=== PATIENT | male | born 1980 | race Caucasian/White ===

== ENCOUNTER 2020-05-12 08:24 | Emergency (ER) | payer OTHER ==
[2020-05-12] MEDS ORDERED: Sodium Chloride 0.9% 10 ML Syringe FLUSH PRN (08:57)
[2020-05-12] MEDS ORDERED: Sodium Chloride 0.9% 2.5 ML Syringe FLUSH PRN (08:57)
[2020-05-12] MEDS ORDERED: Bupivacaine 0.5% 10 ML SDV INJECT ONE (08:59)
[2020-05-12] MEDS ORDERED: Lidocaine 1% 10 ML MDV INJECT ONE (08:59)
[2020-05-12] MEDS ORDERED: ceFAZolin 1 GM in Premix Bag 1 BAG IV ONE (08:59)
--- NOTE | 2020-05-12 09:03 | EDM.PDOC ---
ED HPI GENERAL MEDICAL PROBLEM - General Chief Complaint: Lower Extremity Injury/Pain Stated Complaint: LFT FOOT INFECTED Time Seen by Provider: 05/12/20 08:47 - History of Present Illness INITIAL COMMENTS - FREE TEXT/NARRATIVE: History of present illness: [] Has dealt with a ingrown toenail on his left foot for about a month. 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 He has continued to suffer with pain and drainage and redness with swelling. 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 He is not diabetic but he started having the feeling that he is feverish and has chills. He is also been lightheaded for 2 days. Because of systemic signs of infection he came to have professional rest the issue and try to keep him from getting sicker. Review of systems: As per history of present illness and below otherwise all systems reviewed and negative. Past medical history: As per history of present illness and as reviewed below otherwise noncontributory. Surgical history: As per history of present illness and as reviewed below otherwise noncontributory. Social history: No reported history of drug or alcohol abuse. Family history: As per history of present illness and as reviewed below otherwise noncontributory. Physical exam: Constitutional - well developed, well-nourished and in no acute distress HEENT - normocephalic, no evidence of trauma - external nose and mouth normal - no mass in neck and no JVD - mucosae moist EYES - full EOM, PERRL, no icterus - no evidence of inflammation, injection, or drainage Respiratory - no respiratory distress, equal bilateral expansion Musculoskeletal no gross deformity of long bones or joints - no tenderness, swelling or edema Neurologic - Alert and oriented times four - CN II-XII grossly intact - motor sensory and coordination symmetrically normal Psychiatric - appropriate mood and affect with normal thought content Hematologic - No petechiae or purpura - mucosa appropriate color and sclera not pale - normal nail bed color and refill Integument -the patient has an ingrown toenail in toe number one of the left foot. He also has erythema and swelling in the paronychial area. The area is very tender. No rash or evidence of trauma - normal turgor Diagnostics: [] Therapeutics: [] Impression: [] Plan: [] Definitive disposition and diagnosis as appropriate pending reevaluation and review of above. Left great toe Pain Score (Numeric/FACES): 3 - Related Data Allergies Allergy/AdvReac Type Severity Reaction Status Date / Time iodine Allergy Anaphylactic Verified 05/12/20 08:45 Shock shellfish derived Allergy Anaphylactic Verified 05/12/20 08:45 Shock Home Meds: Home Meds Meloxicam 05/12/20 [History] Verapamil [Verelan] 05/12/20 [History] busPIRone [Buspar] 05/12/20 [History] cephALEXin [Cephalexin] 500 mg PO BID #14 capsule 05/12/20 [Rx] Past Medical History Musculoskeletal History: Reports: Arthritis Neurological History: Reports: Migraines Psychiatric History: Reports: Anxiety, PTSD - Infectious Disease History Infectious Disease History: Reports: Chicken Pox Social & Family History - Family History Family Medical History: No Pertinent Family History - Tobacco Use Tobacco Use Status *Q: Never Tobacco User - Caffeine Use Caffeine Use: Reports: Coffee - Recreational Drug Use Recreational Drug Use: No Review of Systems - Review of Systems Review Of Systems: Comprehensive ROS is negative, except as noted in HPI. ED EXAM, GENERAL - Physical Exam Exam: See Below Free Text/Narrative:: My physical exam is in the HPI ED TRAUMA EXTREMITY PROCEDURES - I&D Site: Left great toe Skin Prep: Chlorhexidine (Hibiciens) Local Anesthesia: Lidocaine: 1% Plain Local Anesthesia - Bupivicaine (Marcaine): 0.5% Plain Local Anesthetic Volume: Other (10 cc) Area Incised With: 11 Blade Drainage: Purulent Probed to Break Up Loculations: Yes Packed With: 1/4 in. Iodoform Sterile Dressinx4(s) Progress/Comments: After chlorhexidine prep the base of the toe was injected with 10 mL of a 50-50 combination of bupivacaine and Xylocaine. After adequate local anesthesia from the digital block the procedure was done and part of the nail on each side of the nail was removed all the way back to the base and the eponychium was elevated. A little purulent drainage was obtained. The patient tolerated the procedure well. Deformed packing was added on both sides. Course - Vital Signs Last Recorded V/S: Last Vital Signs Temp 36.8 C 05/12/20 08:42 Pulse 71 05/12/20 09:38 Resp 18 05/12/20 08:42 BP 129/82 05/12/20 09:38 Pulse Ox 97 05/12/20 09:38 - Orders/Labs/Meds Orders: Active Orders 24 hr Category Date Time Status Sodium Chloride 0.9% [Saline Flush] Med 05/12/20 08:57 Active 10 ml FLUSH ASDIRECTED PRN Sodium Chloride 0.9% [Saline Flush] Med 05/12/20 08:57 Active 2.5 ml FLUSH ASDIRECTED PRN Saline Lock Insert [OM.PC] Stat Oth 05/12/20 08:57 Ordered Medication Orders Sodium Chloride (Sodium Chloride 0.9% 10 Ml Syringe) 10 ml FLUSH ASDIRECTED PRN PRN Reason: Keep Vein Open Last Admin: 05/12/20 09:13 Dose: 10 ml Documented by: ELIAZAR Sodium Chloride (Sodium Chloride 0.9% 2.5 Ml Syringe) 2.5 ml FLUSH ASDIRECTED PRN PRN Reason: Keep Vein Open Last Admin: 05/12/20 09:13 Dose: 2.5 ml Documented by: ELIAZAR Labs: Laboratory Tests 05/12/20 05/12/20 Range/Units 09:10 09:10 WBC 5.90 (4.0-11.0) K/uL RBC 5.61 (4.50-5.90) M/uL Hgb 17.0 (13.0-17.0) g/dL Hct 48.9 (38.0-50.0) % MCV 87.2 (80.0-98.0) fL MCH 30.3 (27.0-32.0) pg MCHC 34.8 (31.0-37.0) g/dL RDW Std Deviation 40.0 (28.0-62.0) fl RDW Coeff of Smita 13 (11.0-15.0) % Plt Count 158 (150-400) K/uL MPV 11.10 (7.40-12.00) fL Neut % (Auto) 63.3 (48.0-80.0) % Lymph % (Auto) 24.9 (16.0-40.0) % [place] % (Auto) 9.0 (0.0-15.0) % Eos % (Auto) 2.5 (0.0-7.0) % Baso % (Auto) 0.3 (0.0-1.5) % Neut # (Auto) 3.7 (1.4-5.7) K/uL Lymph # (Auto) 1.5 (0.6-2.4) K/uL [place] # (Auto) 0.5 (0.0-0.8) K/uL Eos # (Auto) 0.2 (0.0-0.7) K/uL Baso # (Auto) 0.0 (0.0-0.1) K/uL Nucleated RBC % 0.0 /100WBC Nucleated RBCs # 0 K/uL Sodium 141 (136-148) mmol/L Potassium 4.4 (3.5-5.1) mmol/L Chloride 108 H (98-107) mmol/L Carbon Dioxide 26.1 (21.0-32.0) mmol/L BUN 15 (7.0-18.0) mg/dL Creatinine 1.0 (0.8-1.3) mg/dL Est Cr Clr Drug Dosing 121.76 mL/min Estimated GFR (MDRD) > 60.0 ml/min Glucose 89 (74-106) mg/dL Calcium 8.5 (8.5-10.1) mg/dL Meds: Medications Generic Name Dose Route Start Last Admin Trade Name Freq PRN Reason Stop Dose Admin Sodium Chloride 10 ml 05/12/20 08:57 05/12/20 09:13 Sodium Chloride 0.9% 10 Ml Syringe FLUSH 10 ml ASDIRECTED PRN Administration Keep Vein Open Sodium Chloride 2.5 ml 05/12/20 08:57 05/12/20 09:13 Sodium Chloride 0.9% 2.5 Ml Syringe FLUSH 2.5 ml ASDIRECTED PRN Administration Keep Vein Open Discontinued Medications Generic Name Dose Route Start Last Admin Trade Name Freq PRN Reason Stop Dose Admin Bupivacaine HCl 10 ml 05/12/20 08:59 05/12/20 09:11 Bupivacaine 0.5% 10 Ml Sdv INJECT 05/12/20 09:00 10 ml ONETIME ONE Administration Cefazolin Sodium/Dextrose 1 gm 50 mls @ 100 mls/hr 05/12/20 08:59 05/12/20 09:10 / Premix IV 05/12/20 09:28 100 mls/hr ONETIME ONE Administration Lidocaine HCl 10 ml 05/12/20 08:59 05/12/20 09:27 Lidocaine 1% 10 Ml Mdv INJECT 05/12/20 09:00 Not Given ONETIME ONE Lidocaine HCl 10 ml 05/12/20 09:10 05/12/20 09:18 Lidocaine 1% 5 Ml Sdv INJECT 05/12/20 09:11 10 ml ONETIME ONE Administration Departure - Departure Time of Disposition: 10:19 Disposition: Home, Self-Care 01 Condition: Good Clinical Impression: Paronychia due to ingrown nail - Discharge Information Prescriptions: cephALEXin [Cephalexin] 500 mg PO BID #14 capsule Instructions: Paronychia, [id number] Referrals: PCP,None [Ordering Only Provider] - Forms: ED Department Discharge Additional Instructions: Warm compresses are advised. When the packs fall out or after 2 days you can pull them out and then start warm soaks. If you continue to develop more fever chills weakness or other signs of systemic infection you need to be seen again. [facility] - Primary [facility] [address] [place] [address] [place] [address] The following information is given to patients seen in the emergency department who are being discharged to home. This information is to outline your options for follow-up care. We provide all patients seen in our emergency department with a follow-up referral. The need for follow-up, as well as the timing and circumstances, are variable d epending upon the specifics of your emergency department visit. If you don't have a primary care physician on staff, we will provide you with a referral. We always advise you to contact your personal physician following an emergency department visit to inform them of the circumstance of the visit and for follow-up with them and/or the need for any referrals to a consulting specialist. The emergency department will also refer you to a specialist when appropriate. This referral assures that you have the opportunity for follow-up care with a specialist. All of these measure are taken in an effort to provide you with optimal care, which includes your follow-up. Under all circumstances we always encourage you to contact your private physician who remains a resource for coordinating your care. When calling for follow-up care, please make the office aware that this follow-up is from your recent emergency room visit. If for any reason you are refused follow-up, please contact the [facility] Emergency Department at and asked to speak to the emergency department charge nurse. Sepsis Event Note (ED) - Evaluation Sepsis Screening Result: No Definite Risk - Focused Exam Vital Signs: Vital Signs Temp Pulse Resp BP Pulse Ox 05/12/20 09:38 71 129/82 97 05/12/20 08:42 36.8 C 78 18 150/93 H 95 - My Orders Last 24 Hours: My Active Orders 05/12/20 08:57 Sodium Chloride 0.9% [Saline Flush] 10 ml FLUSH ASDIRECTED PRN Sodium Chloride 0.9% [Saline Flush] 2.5 ml FLUSH ASDIRECTED PRN Saline Lock Insert [OM.PC] Stat - Assessment/Plan Last 24 Hours: My Active Orders 05/12/20 08:57 Sodium Chloride 0.9% [Saline Flush] 10 ml FLUSH ASDIRECTED PRN Sodium Chloride 0.9% [Saline Flush] 2.5 ml FLUSH ASDIRECTED PRN Saline Lock Insert [OM.PC] Stat
[2020-05-12 09:39] LABS: BLOOD UREA NITROGEN,BUN 15 mg/dL (7.0-18.0); CARBON DIOXIDE,CO2 26.1 mmol/L (21.0-32.0); CHLORIDE,CL 108 mmol/L (98-107); GLUCOSE RANDOM 89 mg/dL (74-106); POTASSIUM,K 4.4 mmol/L (3.5-5.1); SODIUM,NA 141 mmol/L (136-148)
== END 2020-05-12 10:50 | disposition home or self-care (01) ==
LOC: MW.ED 08:24
DX: L60.0 Ingrowing nail (principal); L03.032 Cellulitis of left toe; Z88.8 Allergy status to other drugs, medicaments and biological substances; Z91.013 Allergy to seafood
CPT/HCPCS: 10060; 36415; 80048; 85025; 96365; 99283; J0690; J3490